=== PATIENT | female | born 1980 | race Caucasian/White ===

== ENCOUNTER 2016-11-22 22:34 | Inpatient (IN) | payer OTHER ==
[2016-11-22] MEDS ORDERED: Oxytocin 10 Units/1 ML SDV IM ONE (22:50)
[2016-11-22] MEDS ORDERED: Lidocaine 1% 20 ML MDV INJECT ONE (22:50)
--- NOTE | 2016-11-22 23:03 | PCM.LDHP ---
L&D History of Present Illness - General Date of Service: 11/22/16 Admit Problem/Dx: Admission Diagnosis/Problem Admission Diagnosis/Problem Source of Information: Patient, Old Records History Limitations: Reports: No Limitations - Related Data Allergies/Adverse Reactions: Allergies Allergy/AdvReac Type Severity Reaction Status Date / Time No Known Allergies Allergy Verified 06/03/14 09:45 Home Medications: Home Meds [id number]/Ferrous Fumarate/FA [ Tablet] 1 tab PO DAILY 06/03/14 [History] Acetaminophen with Codeine [Tylenol with Codeine #3 Tablet] 1 each PO Q6H PRN # 30 tablet 06/04/14 [Rx] Social & Family History - Tobacco Use Smoking Status *Q: Never Smoker Second Hand Smoke Exposure: No - Alcohol Use Days Per Week of Alcohol Use: 0 - Recreational Drug Use Recreational Drug Use: No H&P Review of Systems - Review of Systems: Review Of Systems: ROS reveals no pertinent complaints other than HPI. L&D Exam - Exam Exam: See Below - Vital Signs Weight: 73.482 kg - Exam General: Alert, Oriented HEENT: PERRLA, Conjunctiva Clear, EACs Clear, EOMI, Hearing Intact, Mucosa Moist & [place], Nares Patent, Normal Nasal Septum, Posterior Pharynx Clear, TMs Clear Neck: Supple, Trachea Midline Lungs: Clear to Auscultation, Normal Respiratory Effort Cardiovascular: Regular Rate, Regular Rhythm GI/Abdominal Exam: Normal Bowel Sounds, Soft, Non-Tender, No Organomegaly, No Distention, No Abnormal Bruit, No Mass, Pelvis Stable Rectal Exam: Normal Exam, Normal Rectal Tone Genitourinary: Normal external exam, Normal bimanual exam, Normal speculum exam Back Exam: Normal Inspection, Full Range of Motion Extremities: Normal Inspection, Normal Range of Motion, Non-Tender, No Pedal Edema, Normal Capillary Refill Skin: Warm, Dry, Intact Neurological: Cranial Nerves Intact, Reflexes Equal Bilateral Psychiatric: Alert, Normal Affect, Normal Mood Problem List Initiated/Reviewed/Updated: Yes
[2016-11-23] MEDS: Ibuprofen 600 MG Tab PO PRN ×3 (00:30→14:19)
--- NOTE | 2016-11-23 01:55 | DEL ---
DATE OF DELIVERY: 11/22/2016 PROCEDURE: 1. Vaginal delivery. 2. Second-degree perineal tear, midline. BRIEF HISTORY AND HOSPITAL COURSE: This is a 36-year-old female, G4, who presented at term three days post in active labor. She was found to be complete at presentation, delivered within 30 minutes of my arrival. Intact perineum except second-degree perineal tear. Baby was alive and vigorous with Apgars of 8 and 9. Weight 7 pounds 7 ounces. The placenta delivered shortly afterwards, intact, three vessel, and 10 units of international units of Pitocin was given in the IM route to control contractions. The second-degree tear was repaired by 4-0 Vicryl with no complications. Regular orders will be followed. /[id number] CHIKA/MARVIN
--- NOTE | 2016-11-23 08:04 | PCM.PNPP ---
- General Info Date of Service: 11/23/16 Functional Status: Reports: Tolerating Diet, Ambulating. Denies: Pain Controlled - General Info Date of Service: 11/23/16 - Patient Data Vital Signs - Most Recent: Last Vital Signs Temp 98.5 F 11/22/16 23:05 Pulse 82 11/23/16 00:15 Resp 16 11/23/16 00:15 BP 130/75 11/23/16 00:15 Pulse Ox 99 11/22/16 23:05 Weight - Most Recent: 69.853 kg Med Orders - Current: Current Medications Ibuprofen (Motrin) 600 mg PO Q6H PRN PRN Reason: Cramping Last Admin: 11/23/16 07:23 Dose: 600 mg Measles/Mumps/Rubella Vaccine Live (M-M-R Ii Vaccine) 0.5 ml SUBCUT .ONCE ONE Stop: 11/23/16 09:01 Discontinued Medications Lidocaine HCl (Xylocaine 1%) 20 ml INJECT ONETIME ONE Stop: 11/22/16 22:51 Last Admin: 11/22/16 22:50 Dose: 20 ml Oxytocin (Pitocin) 10 unit IM ONETIME ONE Stop: 11/22/16 22:51 Last Admin: 11/22/16 22:50 Dose: 10 unit - Infant Interaction Infant Disposition, : [place] to Nursery Support Person: - Recovery Exam Fundal Tone: Firm Fundal Level: At Umbilicus Fundal Placement: Midline Lochia Amount: Moderate Lochia Color: Rubra/Red Perineum Description: Edematous Episiotomy/Laceration: Approximated - Exam General: Alert, Oriented HEENT: Pupils Equal Neck: Supple Lungs: Clear to Auscultation, Normal Respiratory Effort Cardiovascular: Regular Rate, Regular Rhythm GI/Abdominal Exam: Normal Bowel Sounds, Soft, Non-Tender, No Organomegaly, No Distention, No Abnormal Bruit, No Mass, Pelvis Stable Extremities: Normal Inspection, Normal Range of Motion, Non-Tender, No Pedal Edema, Normal Capillary Refill Skin: Warm, Dry, Intact Wound/Incisions: Healing Well Neurological: No New Focal Deficit Psy/Mental Status: Alert, Normal Affect, Normal Mood - Problem List & Annotations (1) Normal delivery at term SNOMED Code(s): 14246044 Code(s): O80 - ENCOUNTER FOR FULL-TERM UNCOMPLICATED DELIVERY Status: Acute Current Visit: No Annotation/Comment:: Post Day 1 Patient wants to go home. Reasonable,she is doing well. - Problem List Review Problem List Initiated/Reviewed/Updated: Yes - My Orders Last 24 Hours: My Active Orders 11/22/16 22:37 Admission Status [Patient Status] [ADT] Routine 11/22/16 23:05 Patient Status [ADT] Routine Vital Signs [RC] PFP Assess Lochia [WOMSER] Per Unit Routine Assess Uterine Involution [WOMSER] Per Unit Routine Ice Therapy [OM.PC] Per Unit Routine Resuscitation Status Routine 11/23/16 00:10 Ibuprofen [Motrin] 600 mg PO Q6H PRN 11/23/16 02:55 Vaccines to be Administered [RC] PER UNIT ROUTINE 11/23/16 09:00 Measles, Mumps & Rubella [M-M-R II Vaccine] 0.5 ml SUBCUT .ONCE ONE - Plan Plan:: Rotuine care.Post Day #1
[2016-11-23] MEDS ORDERED: Measles, Mumps & Rubella Vaccine 0.5 ML SDV SUBCUT ONE (09:00)
[2016-11-23 10:45] VITALS: BP 121/77
--- NOTE | 2016-11-23 12:01 | HP ---
ADMISSION DATE: 11/22/2016 ADDENDUM: PHYSICAL EXAMINATION: VITAL SIGNS: Normal. ENT: Negative. CHEST: Clear. ABDOMEN: Soft. EXTREMITIES: Normal. MENTAL STATUS: Alert. CARDIOVASCULAR: Normal. NEUROLOGIC: Normal. IMPRESSION: 1. G4, P3 at term, second stage of labor. 2. Unknown group B status. 3. Insufficient care. PLAN: Continue with imminent delivery. /[id number] CHIKA/MARVIN
--- NOTE | 2016-11-24 09:07 | DISCH ---
DISCHARGE DATE: 11/23/2016 REASON FOR ADMISSION: Second stage of labor. DISCHARGE DIAGNOSIS: Spontaneous vaginal delivery. CONSULTATIONS: None. BRIEF HISTORY: This is a 36-year-old female, G4, who presented at term complete and pushed, delivered shortly afterwards a live male . The patient requested strongly that she wanted to go home and was discharged home today the . No medications. For followup in the office in 6 weeks. I spent less than 35 minutes in the discharge of the patient. /[id number] CHIKA/MARVIN
== END 2016-11-23 17:00 | disposition home or self-care (01) | DRG 775 ==
LOC: FB.OB 22:34 → FB.OBCHECK 22:34 → FB.OB 22:35
PROVIDERS: ADMIT Family Medicine; ATTEND Family Medicine
PROC: 10E0XZZ Delivery of Products of Conception, External Approach (ICD-10-PCS; principal; 2016-11-22)
PROC: 0KQM0ZZ Repair Perineum Muscle, Open Approach (ICD-10-PCS; 2016-11-22)
DX: O70.1 Second degree perineal laceration during delivery (principal); Z37.0 Single live birth; Z3A.40 40 weeks gestation of pregnancy
CPT/HCPCS: 59409; A9270-GY; J2590